=== PATIENT | female | born 1940 | race Caucasian/White ===

== ENCOUNTER → 2018-04-02 12:27 | Outpatient (CLI) | payer MEDICARE, OTHER, SELFPAY ==
--- NOTE | 2018-04-02 | DI.US.S_ITS ---
PROCEDURE: US CAROTID DOPPLER BI INDICATIONS: STENOSIS TECHNIQUE: Color and pulse Doppler interrogation was performed of both carotid systems, with image documentation and velocity measurements. COMPARISON: None. FINDINGS: Stenosis calculations are based on SRU (Society of Radiologists in Ultrasound) criteria. Right side: Brachial blood pressure: 155/77 mm Hg. Common carotid artery peak systolic velocity: 84 cm/sec. Internal carotid artery peak systolic velocity: 55 cm/sec. Internal carotid artery end diastolic velocity: 15 cm/sec. External carotid artery peak systolic velocity: 73 cm/sec. ICA/CCA peak systolic ratio: 0.66. Alvarado scale imaging description: Mild calcified plaque at the proximal ICA. Percent internal carotid artery stenosis: Less than 50%. Vertebral artery: Flow direction is antegrade. Left side: Brachial blood pressure: 150/78 mm Hg. Common carotid artery peak systolic velocity: 73 cm/sec. Internal carotid artery peak systolic velocity: 58 cm/sec. Internal carotid artery end diastolic velocity: 19 cm/sec. External carotid artery peak systolic velocity: 71 cm/sec. ICA/CCA peak systolic ratio: 1.1. Alvarado scale imaging description: Mild calcified plaque at the the bifurcation Percent internal carotid artery stenosis: Less than 50%. Vertebral artery: Flow direction is antegrade. IMPRESSION: Bilateral less than 50% ICA stenosis. Dictated by: Agus Garsia M.D. on 04/02/2018 at 15:58 Approved by: Agus Garsia M.D. on 04/02/2018 at 16:00
== END ==
PROVIDERS: PCP Physician Assistant; Visit Provider Physician Assistant
DX: I65.23 Occlusion and stenosis of bilateral carotid arteries (principal)
CPT/HCPCS: 93880

== ENCOUNTER → 2018-06-12 09:30 | Outpatient (CLI) | payer MEDICARE, OTHER, SELFPAY ==
--- NOTE | 2018-06-12 | DI.MG.S_ITS ---
BILATERAL DIGITAL SCREENING MAMMOGRAM 3D/2D WITH CAD: 06/12/2018 CLINICAL: Routine screening. Family history of breast cancer. Comparison is made to exams dated: 06/18/2013 mammogram, 06/23/2011 mammogram, 12/11/2008 mammogram, and 12/07/2006 mammogram - [facility]. There are scattered fibroglandular elements in both breasts. Current study was also evaluated with a Computer Aided Detection (CAD) system. There are benign calcifications in the right breast. No significant masses, calcifications, or other findings are seen in either breast. There has been no significant interval change. IMPRESSION: There is no mammographic evidence of malignancy. A 1 year screening mammogram is recommended. This exam was interpreted at Station ID: [id number]. NOTE: For mammograms, a report in lay terms will be sent to the patient. Approximately 15% of breast malignancies will not be visualized mammographically. In the management of a palpable breast mass, a negative mammogram must not discourage biopsy of a clinically suspicious lesion. Electronically Signed By: Helio alvarado/key:06/12/2018 18:05:03 letter sent: Normal Exam ACR BI-RADS Category 2: Benign Finding(s) 3342F
== END ==
PROVIDERS: PCP Physician Assistant; Visit Provider Physician Assistant
DX: Z12.31 Encounter for screening mammogram for malignant neoplasm of breast (principal); Z80.3 Family history of malignant neoplasm of breast; M85.852 Other specified disorders of bone density and structure, left thigh; Z78.0 Asymptomatic menopausal state; E07.9 Disorder of thyroid, unspecified
CPT/HCPCS: 77063; 77067; 77080

== ENCOUNTER 2020-05-13 17:50 | Emergency (ER) | payer MEDICARE, OTHER, SELFPAY ==
[2020-05-13] VITALS (14 sets, daily range): BP systolic 148–193; BP diastolic 67–87; PULSE 71–83; RESP 15–23; TEMP 36.8; O2SAT 97–100; BMI 31.1
--- NOTE | 2020-05-13 18:36 | DI.RAD.S_ITS ---
PROCEDURE: XR CHEST 1V INDICATIONS: chest pain TECHNIQUE: One view of the chest was acquired. COMPARISON: [facility], , CHEST 2 VIEW, 03/16/2015, 11:14. FINDINGS: Surgical changes and devices: None. Lungs and pleura: Lungs are clear. No pleural effusions or pneumothorax. Mediastinum: Mediastinal contours appear normal. Heart size is normal. Bones and chest wall: No suspicious bony lesions. Overlying soft tissues appear unremarkable. IMPRESSION: No acute cardiopulmonary disease process. Dictated by: Keyla Pond MD, PhD on 05/13/2020 at 19:02 Approved by: Keyla Pond MD, PhD on 05/13/2020 at 19:03
[2020-05-13 19:01] LABS: Add Manual Diff / Slide Review NO; Basophils Absolute Auto 100 /uL (0-100); Basophils Percent Auto 1.1 % (0-2); Eosinophils Absolute Auto 100 /uL (0-450); Eosinophils Percent Auto 1.2 % (2-4); Hematocrit 34.9 % (36-46); Lymphocytes Absolute Auto 1400 /uL (1100-4500); Lymphocytes Percent Auto 21.7 % (25-40); Mean Corpuscular HGB Conc 34.5 % (30-36); Mean Corpuscular Hemoglobin 30.8 PG (26-34); Mean Corpuscular Volume 89.4 fL (80-100); Monocytes Absolute Auto 500 /uL (0-900); Monocytes Percent Auto 7.6 % (3-14); Neutrophils Absolute Auto 4600 /uL (1500-7000); Neutrophils Percent Auto 68.4 % (50-75); Platelet Count 322 X10^3/uL (150-400); Red Blood Cell Count 3.91 X10^6/uL (4.0-5.2); Red Cell Distribution Width 12.3 % (11.6-14.8); White Blood Cell Count 6.7 X10^3/uL (4.5-11.0)
[2020-05-13 19:08] LABS: Prothrombin Time 11.5 SECONDS (10.1-12.7)
[2020-05-13 19:10] LABS: PTT Partial Thromboplastin Tim 32 SECONDS (26.4-36.2)
[2020-05-13 19:14] LABS: Alanine Aminotransferase 25 IU/L (<35); Albumin 4.4 g/dL (3.5-5.0); Albumin Globulin Ratio 1.6 (1.0-2.8); Alkaline Phosphatase 72 U/L (38-126); Aspartate Aminotransferase 34 IU/L (14-36); Bilirubin Total 0.4 mg/dL (0.2-1.3); Blood Urea Nitrogen 14 mg/dL (7-17); Calcium 9.3 mg/dL (8.4-10.2); Carbon Dioxide 23 mmol/L (22-32); Chloride 91 mmol/L (98-107); Creatine Kinase 45 U/L (30-135); Estimated Glomerular Filt Rate > 60.0 mL/min (>60); Globulin 2.7 g/dL (1.7-4.1); Glucose 104 mg/dL (80-110); HEMOLYSIS < 15 (0-50); Lipase 110 U/L (23-300); Potassium 3.5 mmol/L (3.4-5.1); Sodium 124 mmol/L (137-145); Total Protein 7.1 g/dL (6.3-8.2)
[2020-05-13 19:25] LABS: Troponin I < 0.012 ng/mL (0.01-0.034)
--- NOTE | 2020-05-13 19:33 | ED_ITS ---
HPI - Nausea/Vomiting/Diarrhea General Chief complaint: Nausea/Vomiting/Diarrhea Stated complaint: Not feeling well Time Seen by Provider: 05/13/20 19:32 Source: patient Mode of arrival: EMS Limitations: no limitations History of Present Illness HPI Narrative: Patient is a 79-year-old female with history of hypertension hypothyroid and hyperlipidemia presenting with nausea and some epigastric discomfort today. She says she has not vomited she denies any diarrhea she just has been feeling weak and feels like something is not right. She denies any chest pain palpitations dizziness or lightheadedness. She has been able to take her medications and eat some. She denies any fever or chills. She said yesterday she was at her baseline and feeling okay. MD complaint: nausea Onset (ago): hour(s) Description of Diarrhea: none Location of pain: epigastric Related Data Home Medications Medication Instructions Recorded Confirmed ESCITALOPRAM OXALATE (Lexapro) 10 mg PO Q DAY #0 03/26/08 LEVOTHYROXINE SODIUM (Synthroid) 25 mcg PO Q AM #0 03/26/08 lovastatin 20 mg PO QDAY #0 03/26/08 Previous Rx's Medication Instructions Recorded ondansetron 4 mg PO Q8H PRN #10 tab 05/13/20 Allergies Allergy/AdvReac Type Severity Reaction Status Date / Time No Known Drug Allergies Allergy Verified 05/13/20 18:04 Review of Systems Review of Systems ROS Unobtainable: All systems reviewed & are unremarkable except as noted in HPI and below Constitutional Constitutional: Denies body ache(s), Reports chills, Denies fatigue, Denies fever(s), Denies headache(s) and Denies poor appetite Eyes Eyes: Denies change in vision, Denies eye discharge, Denies irritation and Denies loss of vision ENT Ears, Nose, Mouth, and Throat: Denies headache(s) Cardiovascular Cardiovascular: Denies chest pain, Denies irregular heart rhythm, Denies lightheadedness, Denies palpitations, Denies dyspnea, Denies dyspnea on exertion and Denies orthopnea Respiratory Respiratory: Denies cough, Denies dyspnea, Denies dyspnea on exertion and Denies wheezing Gastrointestinal Gastrointestinal: Reports abdominal pain (Epigastric pain), Denies change in bow el habits, Denies diarrhea, Reports nausea and Denies vomiting Genitourinary Genitourinary: Denies urinary hesitancy and Denies urinary urgency Genitourinary: Denies urinary hesitancy and Denies urinary urgency Musculoskeletal Musculoskeletal: Denies back pain, Denies myalgias and Denies tingling Integumentary/Breasts Skin/Breast: Denies pruritus, Denies erythema, Denies rash and Denies wounds Neurologic Neurologic: Denies headache(s), Denies loss of vision and Denies tingling Endocrine Endocrine: Denies fatigue and Denies palpitations Allergic/Immunologic Allergic/Immunologic: Denies wheezing Patient History Medical History Hyperlipidemia Hypertension Hypothyroid Social History Smoking Status: Unknown if ever smoked Smoking Status: Unknown if ever smoked alcohol intake frequency: holidays/special occasions only Substance Use Type: does not use Exam Initial Vital Signs Initial Vital Signs: Vital Signs Temperature 98.2 F 05/13/20 17:40 Pulse Rate 75 05/13/20 17:40 Respiratory Rate 15 05/13/20 17:40 Blood Pressure 183/79 H 05/13/20 17:40 Pulse Oximetry 97 05/13/20 17:40 GENERAL: Alert well-appearing 79-year-old female and in no acute distress. HEENT: Head atraumatic,EOMI, pupils reactive, face symmetric, moist mucous membranes CARDIOVASCULAR: Regular rate and rhythm without murmurs, rubs or gallops. RESPIRATORY: Breath sounds equal bilaterally, no wheezes rales or rhonchi. ABDOMEN: Soft, mild epigastric tenderness no guarding no rebound mild right upper quadrant lb negative Rivas sign : No CVA tenderness EXTREMITIES: Normal range of motion, no clubbing or edema. Neurovascularly intact NEUROLOGICAL: Alert and oriented x4.Normal gait and speech. SKIN: Warm, dry, no laceration, no petechiae, no rashes or lesions. Course Orders Ordered: ED Orders 05/13/20 17:59 EKG-12 Lead Stat 05/13/20 18:32 Complete Blood Count AUTO DIFF Stat Comprehensive Metabolic Panel Stat Lipase Stat Partial Thromboplastin Time Stat Prothrombin Time INR Stat Troponin & CK Cardiac Panel Stat 05/13/20 18:36 XR chest 1V Stat 05/13/20 19:39 US abdomen limited Stat Discontinued Medications Sodium Chloride (Normal Saline 0.9%) 1,000 mls @ 150 mls/hr IV CONT ALVINA Last Infusion: 05/13/20 21:52 Dose: 150 mls/hr Documented by: Admin: 05/13/20 19:47 Dose: 150 mls/hr Documented by: ZAHRA Ondansetron HCl (Ondansetron 4 Mg/2 Ml Inj) 4 mg IV NOW ONE Stop: 05/13/20 19:40 Last Admin: 05/13/20 19:47 Dose: 4 mg Documented by: ZAHRA Pantoprazole Sodium (Pantoprazole 40 Mg Vial) 40 mg IV NOW ONE Stop: 05/13/20 19:40 Last Admin: 05/13/20 19:48 Dose: 40 mg Documented by: ZAHRA Vital Signs Vital signs: Vital Signs - 8 hr 05/13/20 18:30 05/13/20 19:00 05/13/20 19:01 Pulse Rate 72 75 75 Respiratory Rate 16 23 21 Blood Pressure 193/87 H Pulse Oximetry 99 99 99 05/13/20 19:04 05/13/20 19:13 05/13/20 19:30 Pulse Rate 74 75 73 Respiratory Rate 23 22 18 Blood Pressure 175/77 H 171/79 H 164/77 H Pulse Oximetry 99 99 97 05/13/20 20:00 05/13/20 20:30 05/13/20 21:00 Pulse Rate 73 72 83 Respiratory Rate 16 16 21 Blood Pressure 150/70 H 158/72 H Pulse Oximetry 97 98 98 05/13/20 21:30 05/13/20 21:44 Pulse Rate 78 75 Respiratory Rate 20 19 Blood Pressure 148/67 H Pulse Oximetry 97 98 MDM - Nausea/Vomiting/Diarrhea Lab Data Attestation: I reviewed the patient's lab results. Result diagrams: 05/13/20 18:32 05/13/20 18:32 Labs: Lab Results 05/13/20 05/13/20 05/13/20 Range/Units 18:32 18:32 18:32 WBC 6.7 (4.5-11.0) X10^3/uL RBC 3.91 L (4.0-5.2) X10^6/uL Hgb 12.0 (12.0-16.0) g/dL Hct 34.9 L (36-46) % MCV 89.4 (80-100) fL MCH 30.8 (26-34) PG MCHC 34.5 (30-36) % RDW 12.3 (11.6-14.8) % Plt Count 322 (150-400) X10^3/uL Neut % (Auto) 68.4 (50-75) % Lymph % (Auto) 21.7 L (25-40) % [place] % (Auto) 7.6 (3-14) % Eos % (Auto) 1.2 L (2-4) % Baso % (Auto) 1.1 (0-2) % Neut # (Auto) 4600 (9175-3998) /uL Lymph # (Auto) 1400 (9138-1130) /uL [place] # (Auto) 500 (0-900) /uL Eos # (Auto) 100 (0-450) /uL Baso # (Auto) 100 (0-100) /uL PT 11.5 (10.1-12.7) SECONDS INR 1.0 (0.9-1.3) APTT 32 (26.4-36.2) SECONDS Sodium 124 L (137-145) mmol/L Potassium 3.5 (3.4-5.1) mmol/L Chloride 91 L (98-107) mmol/L Carbon Dioxide 23 (22-32) mmol/L BUN 14 (7-17) mg/dL Creatinine 0.56 (0.52-1.04) mg/dL Estimated GFR > 60.0 (>60) mL/min BUN/Creatinine Ratio 25.0 H (6-22) Glucose 104 (80-110) mg/dL Calcium 9.3 (8.4-10.2) mg/dL Total Bilirubin 0.4 (0.2-1.3) mg/dL AST 34 (14-36) IU/L ALT 25 (<35) IU/L Alkaline Phosphatase 72 (38-126) U/L Total Creatine Kinase 45 (30-135) U/L CK-MB (CK-2) TNP CK-MB (CK-2) Rel Index TNP Troponin I < 0.012 (0.01-0.034) ng/mL Total Protein 7.1 (6.3-8.2) g/dL Albumin 4.4 (3.5-5.0) g/dL Globulin 2.7 (1.7-4.1) g/dL Albumin/Globulin Ratio 1.6 (1.0-2.8) Lipase 110 (23-300) U/L Imaging Data Chest x-ray: Radiologist's Impression: PROCEDURE: XR CHEST 1V INDICATIONS: chest pain TECHNIQUE: One view of the chest was acquired. COMPARISON: [facility], , CHEST 2 VIEW, 03/16/2015, 11:14. FINDINGS: Surgical changes and devices: None. Lungs and pleura: Lungs are clear. No pleural effusions or pneumothorax. Mediastinum: Mediastinal contours appear normal. Heart size is normal. Bones and chest wall: No suspicious bony lesions. Overlying soft tissues appear unremarkable. IMPRESSION: No acute cardiopulmonary disease process. Dictated by: Keyla Pond MD, PhD on 05/13/2020 at 19:02 US - abdomen: Radiologist's Impression: PROCEDURE: US ABDOMEN LIMITED INDICATIONS: RIGHT UPPER QUADRANT PAIN TECHNIQUE: Real-time focused scanning was performed of the abdomen, with image documentation. COMPARISON: None. FINDINGS: Liver is normal in size. Liver is diffusely increased echotexture. No focal hepatic mass lesions. Gallbladder is sonographically normal. No gallstones. No gallbladder wall thickening. No pericholecystic fluid. No sonographic Rivas sign. Biliary tree is nondilated. Common bile duct measures 7.5 millimeters. Pancreas is sonographically normal. IMPRESSION: 1. No sonographic evidence of cholelithiasis or cholecystitis. If there is continued clinical concern for cholecystitis, consider nuclear medicine HIDA scan for further evaluation. 2. Echogenic liver. Finding typically represents fatty infiltration; however, finding is nonspecific and correlation with clinical and laboratory findings is recommended to exclude other etiologies including hepatic cirrhosis. ECG Data Attestation: I personally reviewed and interpreted this ECG as follows: Interpretation: Normal sinus rhythm rate 71 p.r. interval 186 QRS 84 QTC 480 his [address]VC [address] no ST changes MDM Narrative Medical decision making narrative: Patient does have some mild epigastric pain and minimal right upper quadrant pain, liver enzymes and bilirubin are within normal limits. Ultrasound did not show any abnormality that would be causing her to be nauseated. Her sodium is found to be 124 this is lower than what it normally is, baseline is seem to be drinking excessive water and she is continuing to eat. A recommend she follow up as outpatient his mind have it be retested. At this time unclear what has been causing her nausea but she is overall feeling better after Zofran. Discharge Plan Departure Patient Disposition: Home Clinical Impression: Chronic hyponatremia Instructions: Hyponatremia-Adult Activity Restrictions/Additional Instructions: *You have been diagnosed with mild hyponatremia is which is low-sodium *What to do: Your sodium today is 124, this may be from drinking excessive water. Please limit your water intake to 4 glasses a day, I also recommend drinking Gatorade or Gatorade like substance instead please have your sodium recheck with her primary care provider *Continue to take medications as directed Zofran 4 mg every 8 hours if needed for nausea or vomiting *Follow up with your primary care provider in 2-3 days *Return to ER if you should have increasing weakness, nausea or vomiting, or abdominal or any new, worsening or concerning symptoms Prescriptions: New ondansetron 4 mg tablet,disintegrating 4 mg PO Q8H PRN (Reason: nausea and vomiting) Qty: 10 RF: 0 No Action ESCITALOPRAM OXALATE (Lexapro) 10 mg PO Q DAY Qty: 0 RF: 0 LEVOTHYROXINE SODIUM (Synthroid) 25 mcg PO Q AM Qty: 0 RF: 0 lovastatin 20 MG tablet 20 mg PO QDAY Qty: 0 RF: 0 Referrals: Gisele Thakkar PA-C [Primary Care Provider] -
--- NOTE | 2020-05-13 19:39 | DI.US.S_ITS ---
PROCEDURE: US ABDOMEN LIMITED INDICATIONS: RIGHT UPPER QUADRANT PAIN TECHNIQUE: Real-time focused scanning was performed of the abdomen, with image documentation. COMPARISON: None. FINDINGS: Liver is normal in size. Liver is diffusely increased echotexture. No focal hepatic mass lesions. Gallbladder is sonographically normal. No gallstones. No gallbladder wall thickening. No pericholecystic fluid. No sonographic Rivas sign. Biliary tree is nondilated. Common bile duct measures 7.5 millimeters. Pancreas is sonographically normal. IMPRESSION: 1. No sonographic evidence of cholelithiasis or cholecystitis. If there is continued clinical concern for cholecystitis, consider nuclear medicine HIDA scan for further evaluation. 2. Echogenic liver. Finding typically represents fatty infiltration; however, finding is nonspecific and correlation with clinical and laboratory findings is recommended to exclude other etiologies including hepatic cirrhosis. Dictated by: Keyla Pond MD, PhD on 05/13/2020 at 22:08 Approved by: Keyla Pond MD, PhD on 05/13/2020 at 22:10
[2020-05-13] MEDS: ONDANSETRON 4 MG/2 ML INJ IV (19:47)
[2020-05-13] MEDS: SODIUM CHLORIDE 0.9% 1,000 ML 150 ML IV (19:47)
[2020-05-13] MEDS: PANTOPRAZOLE 40 MG VIAL IV (19:48)
== END 2020-05-13 21:50 | disposition home or self-care (01) ==
PROVIDERS: Emergency Provider Emergency Medicine; PCP Physician Assistant
DX: E87.1 Hypo-osmolality and hyponatremia (principal)
CPT/HCPCS: 36415; 71045; 76705; 80053; 82550; 83690; 84484; 85025; 85610; 85730; 93005; 96361; 96374; 96375; 99284; C9113; J2405

== ENCOUNTER → 2020-05-21 18:33 | Outpatient (ROUT) | payer MEDICARE, OTHER, SELFPAY ==
[2020-05-21 18:58] LABS: Add Manual Diff / Slide Review NO; Basophils Absolute Auto 0 /uL (0-100); Basophils Percent Auto 0.2 % (0-2); Eosinophils Absolute Auto 200 /uL (0-450); Eosinophils Percent Auto 3.1 % (2-4); Hematocrit 35.4 % (36-46); Lymphocytes Absolute Auto 1900 /uL (1100-4500); Lymphocytes Percent Auto 32.1 % (25-40); Mean Corpuscular Hemoglobin 30.6 PG (26-34); Mean Corpuscular Volume 90.1 fL (80-100); Monocytes Absolute Auto 600 /uL (0-900); Neutrophils Absolute Auto 3300 /uL (1500-7000); Neutrophils Percent Auto 54.6 % (50-75); Platelet Count 366 X10^3/uL (150-400); Red Blood Cell Count 3.92 X10^6/uL (4.0-5.2); Red Cell Distribution Width 12.4 % (11.6-14.8)
[2020-05-21 19:06] LABS: Alanine Aminotransferase 26 IU/L (<35); Albumin 4.3 g/dL (3.5-5.0); Albumin Globulin Ratio 1.7 (1.0-2.8); Alkaline Phosphatase 61 U/L (38-126); Aspartate Aminotransferase 30 IU/L (14-36); Bilirubin Total 0.3 mg/dL (0.2-1.3); Blood Urea Nitrogen 12 mg/dL (7-17); Carbon Dioxide 29 mmol/L (22-32); Chloride 91 mmol/L (98-107); Estimated Glomerular Filt Rate > 60.0 mL/min (>60); Globulin 2.6 g/dL (1.7-4.1); Glucose 109 mg/dL (80-110); HEMOLYSIS < 15 (0-50); Potassium 4.4 mmol/L (3.4-5.1); Sodium 128 mmol/L (137-145); Total Protein 6.9 g/dL (6.3-8.2)
[2020-05-21 19:36] LABS: TSH w/ Reflex to FT4 0.99 uIU/mL (0.47-4.68)
== END ==
PROVIDERS: PCP Physician Assistant; Visit Provider Physician Assistant
DX: I10 Essential (primary) hypertension (principal); E03.9 Hypothyroidism, unspecified; E78.5 Hyperlipidemia, unspecified
CPT/HCPCS: 80053; 84443; 85025

== ENCOUNTER → 2020-07-02 14:37 | Outpatient (CLI) | payer MEDICARE, OTHER, SELFPAY ==
[2020-07-02 16:13] LABS: Add Manual Diff / Slide Review NO; Basophils Absolute Auto 100 /uL (0-100); Basophils Percent Auto 1.1 % (0-2); Eosinophils Absolute Auto 200 /uL (0-450); Eosinophils Percent Auto 3.1 % (2-4); Hematocrit 34.8 % (36-46); Hemoglobin 11.9 g/dL (12.0-16.0); Lymphocytes Absolute Auto 2500 /uL (1100-4500); Lymphocytes Percent Auto 35.5 % (25-40); Mean Corpuscular HGB Conc 34.1 % (30-36); Mean Corpuscular Hemoglobin 30.6 PG (26-34); Mean Corpuscular Volume 89.7 fL (80-100); Monocytes Absolute Auto 700 /uL (0-900); Monocytes Percent Auto 9.7 % (3-14); Neutrophils Absolute Auto 3600 /uL (1500-7000); Neutrophils Percent Auto 50.6 % (50-75); Platelet Count 338 X10^3/uL (150-400); Red Blood Cell Count 3.88 X10^6/uL (4.0-5.2); Red Cell Distribution Width 12.3 % (11.6-14.8); White Blood Cell Count 7.1 X10^3/uL (4.5-11.0)
[2020-07-02 16:31] LABS: BUN Creatinine Ratio 27.4 (6-22); Blood Urea Nitrogen 17 mg/dL (7-17); Calcium 9.6 mg/dL (8.4-10.2); Carbon Dioxide 28 mmol/L (22-32); Chloride 94 mmol/L (98-107); Cholesterol 225 mg/dL (140-199); Estimated Glomerular Filt Rate > 60.0 mL/min (>60); Glucose 87 mg/dL (80-110); HDL Cholesterol 88 mg/dL (40-60); HEMOLYSIS < 15 (0-50); LDL Cholesterol Calculated 113 mg/dL (<100); Potassium 4.3 mmol/L (3.4-5.1); Sodium 129 mmol/L (137-145); Triglycerides 119 mg/dL (35-150)
[2020-07-02 17:25] LABS: TSH w/ Reflex to FT4 < 0.02 uIU/mL (0.47-4.68)
[2020-07-02 18:30] LABS: Free T4, Direct Thyroxine 1.33 ng/dL (0.78-2.19)
== END ==
PROVIDERS: PCP Physician Assistant; Referring Provider Physician Assistant; Visit Provider Physician Assistant
DX: I10 Essential (primary) hypertension (principal); E03.9 Hypothyroidism, unspecified; E78.5 Hyperlipidemia, unspecified
CPT/HCPCS: 36415; 80048; 80061; 84439; 84443; 85025

== ENCOUNTER → 2020-08-18 14:43 | Outpatient (CLI) | payer MEDICARE, OTHER, SELFPAY ==
[2020-08-18 15:40] LABS: Add Manual Diff / Slide Review NO; Basophils Absolute Auto 100 /uL (0-100); Basophils Percent Auto 1.2 % (0-2); Eosinophils Absolute Auto 200 /uL (0-450); Eosinophils Percent Auto 2.8 % (2-4); Hematocrit 35.5 % (36-46); Lymphocytes Absolute Auto 1800 /uL (1100-4500); Lymphocytes Percent Auto 23.4 % (25-40); Mean Corpuscular HGB Conc 33.7 % (30-36); Mean Corpuscular Hemoglobin 30.5 PG (26-34); Mean Corpuscular Volume 90.7 fL (80-100); Monocytes Absolute Auto 600 /uL (0-900); Neutrophils Absolute Auto 5100 /uL (1500-7000); Neutrophils Percent Auto 64.6 % (50-75); Platelet Count 301 X10^3/uL (150-400); Red Blood Cell Count 3.91 X10^6/uL (4.0-5.2); Red Cell Distribution Width 12.8 % (11.6-14.8); White Blood Cell Count 7.9 X10^3/uL (4.5-11.0)
[2020-08-18 15:52] LABS: Alanine Aminotransferase 25 IU/L (<35); Albumin 4.3 g/dL (3.5-5.0); Albumin Globulin Ratio 1.5 (1.0-2.8); Alkaline Phosphatase 66 U/L (38-126); Aspartate Aminotransferase 35 IU/L (14-36); BUN Creatinine Ratio 23.9 (6-22); Bilirubin Total 0.4 mg/dL (0.2-1.3); Blood Urea Nitrogen 17 mg/dL (7-17); Calcium 9.2 mg/dL (8.4-10.2); Carbon Dioxide 26 mmol/L (22-32); Chloride 99 mmol/L (98-107); Cholesterol 210 mg/dL (140-199); Estimated Glomerular Filt Rate > 60.0 mL/min (>60); Globulin 2.8 g/dL (1.7-4.1); Glucose 95 mg/dL (80-110); HDL Cholesterol 82 mg/dL (40-60); HEMOLYSIS < 15 (0-50); LDL Cholesterol Calculated 98 mg/dL (<100); Potassium 4.2 mmol/L (3.4-5.1); Sodium 131 mmol/L (137-145); Total Protein 7.1 g/dL (6.3-8.2); Triglycerides 149 mg/dL (35-150)
[2020-08-18 17:05] LABS: TSH w/ Reflex to FT4 0.02 uIU/mL (0.47-4.68)
[2020-08-18 17:53] LABS: Free T4, Direct Thyroxine 1.33 ng/dL (0.78-2.19)
== END ==
PROVIDERS: PCP Physician Assistant; Referring Provider Physician Assistant; Visit Provider Physician Assistant
DX: I10 Essential (primary) hypertension (principal); E03.9 Hypothyroidism, unspecified; E78.5 Hyperlipidemia, unspecified
CPT/HCPCS: 36415; 80053; 80061; 84439; 84443; 85025

== ENCOUNTER 2021-06-27 18:33 | Emergency (ER) | payer MEDICARE, OTHER, SELFPAY ==
[2021-06-27 18:42] VITALS: BP 169/78; PULSE 78; RESP 16; TEMP 36.7; O2SAT 97; BMI 30.9
--- NOTE | 2021-06-27 18:50 | DI.RAD.S_ITS ---
PROCEDURE: XR CHEST 1V INDICATIONS: cough, COVID+ TECHNIQUE: One view of the chest was acquired. COMPARISON: [facility], CR, XR CHEST 1V, 05/13/2020, 18:40. FINDINGS: Surgical changes and devices: None. Lungs and pleura: Lungs are clear. No pleural effusions or pneumothorax. Mediastinum: Mediastinal contours appear normal. Heart size is normal. Bones and chest wall: No suspicious bony lesions. Overlying soft tissues appear unremarkable. IMPRESSION: No acute cardiopulmonary pathology. Dictated by: Sebastian Fry M.D. on 06/27/2021 at 19:13 Approved by: Sebastian Fry M.D. on 06/27/2021 at 19:14
[2021-06-27 18:58] VITALS: PULSE 81; O2SAT 98
[2021-06-27 19:00] VITALS: PULSE 80; O2SAT 98
[2021-06-27 19:01] VITALS: BP 184/75; PULSE 80; O2SAT 97
[2021-06-27 19:30] VITALS: PULSE 78; O2SAT 98
[2021-06-27 19:31] VITALS: BP 183/73; PULSE 74; O2SAT 97
[2021-06-27] MEDS: PANTOPRAZOLE 40 MG VIAL IV (19:44)
[2021-06-27] MEDS: ONDANSETRON 4 MG/2 ML INJ IV (19:44)
[2021-06-27] MEDS: MAG HYDROX/ALUMINUM/SIMETH SUS 20 ML, LIDOCAINE VISCOUS 2% 15 ML PO (19:45)
--- NOTE | 2021-06-28 01:04 | ED_ITS ---
HPI - URI/Sore Throat General Chief Complaint: Upper Respiratory Symptoms Stated Complaint: COVID + Time Seen by Provider: 06/27/21 18:51 Source: EMS Mode of arrival: EMS History of Present Illness HPI Narrative: 80F nonsmoker with history of hypothyroid, hyperlipidemia presents with a chief complaint of some mild nausea and an episode of dark stool. She has known COVID and has been on Paxlovid the past few days. She denies any dizziness, weakness or lightheadedness. She denies any chest pain or shortness of breath but does have minimal cough. She is nauseated as mention but denies any vomiting. She took some Pepto after she had a single episode of diarrhea and then had a dark bowel movement. She is resting comfortably and has very little complaint Related Data Home Medications Medication Instructions Recorded Confirmed ESCITALOPRAM OXALATE (Lexapro) 10 mg PO Q DAY #0 03/26/08 LEVOTHYROXINE SODIUM (Synthroid) 25 mcg PO Q AM #0 03/26/08 lovastatin 20 mg tablet 20 mg PO QDAY #0 03/26/08 Previous Rx's Medication Instructions Recorded ondansetron 4 mg disintegrating 4 mg PO Q8H PRN #10 tab 05/13/20 tablet ondansetron 4 mg disintegrating 4 mg PO TID-QID PRN #10 tab 06/27/21 tablet pantoprazole 40 mg tablet,delayed 40 mg PO DAILY #30 tab 06/27/21 release (Protonix) Allergies Allergy/AdvReac Type Severity Reaction Status Date / Time No Known Drug Allergies Allergy Verified 06/27/21 18:45 Review of Systems Review of Systems Narrative: GENERAL: See HPI HEENT: See HPI RESPIRATORY: See HPI. CARDIOVASCULAR: Denies chest pain, palpitations, orthopnea, edema, GASTROINTESTINAL: See HPI : Denies dysuria, frequency, incontinence, hematuria, urinary retention. MUSCULOSKELETAL: denies weakness, joint pain, or bony pain SKIN: Denies rash, skin lesions, or other NEUROLOGIC: Denies weakness, headache, numbness, change in speech, confusion, seizures, incoordination. PSYCHIATRIC: No concerning psychosocial issues. 12 point review of systems is negative except for those stated above Patient History Medical History Hyperlipidemia Hypertension Hypothyroid Social History (Reviewed 06/28/21 @ 01:19 by KARINE Alvarez Smoking Status: Unknown if ever smoked Smoking Status: Unknown if ever smoked alcohol intake frequency: holidays/special occasions only Substance Use Type: does not use Exam Narrative Exam Narrative: GENERAL: [80] year old patient appears stated age. Well-developed patient, in no obvious distress, resting comfortably, talking in full sentences without need for supplemental oxygen HEAD: Atraumatic. Normocephalic. EYES: Pupils equal round and reactive. Extraocular motions intact. No scleral icterus. No injection or drainage. ENT: Nose without bleeding, purulent drainage. Throat without erythema, tonsillar hypertrophy or exudate. Airway patent. NECK: Trachea midline. Non tender CARDIOVASCULAR: Regular rate and rhythm without murmurs, gallops, or rubs. RESPIRATORY: Clear to auscultation. Breath sounds equal bilaterally. No wheezes, rales, or rhonchi. GASTROINTESTINAL: Abdomen soft, non-tender, nondistended. RECTAL: refused EXTREMITIES: No edema or joint tenderness. BACK: Nontender without deformity or crepitance. No flank tenderness. NEURO: AOx3. SKIN: No rash or erythema of visible areas Initial Vital Signs Initial Vital Signs: Vital Signs Temperature 98.0 F 06/27/21 18:42 Pulse Rate 78 06/27/21 18:42 Respiratory Rate 16 06/27/21 18:42 Blood Pressure 169/78 H 06/27/21 18:42 Pulse Oximetry 97 06/27/21 18:42 Course Orders Ordered: ED Orders 06/27/21 18:50 Chest [XR chest 1V] Stat Discontinued Medications Al Hydrox/Mg Hydrox/Simethicone 20 ml/ Lidocaine HCl 15 ml 0 ml PO NOW ONE Stop: 06/27/21 19:33 Last Admin: 06/27/21 19:45 Dose: 35 ml Documented by: ATAYLOR Ondansetron HCl (Ondansetron 4 Mg/2 Ml Inj) 4 mg IV NOW ONE Stop: 06/27/21 19:33 Last Admin: 06/27/21 19:44 Dose: 4 mg Documented by: ATAYLOR Pantoprazole Sodium (Pantoprazole 40 Mg Vial) 40 mg IV NOW ONE Stop: 06/27/21 19:33 Last Admin: 06/27/21 19:44 Dose: 40 mg Documented by: FAVIAN Vital Signs Vital signs: Vital Signs - 8 hr 05/22/22 18:42 06/27/21 18:58 06/27/21 19:00 Temperature 98.0 F Pulse Rate 78 81 80 Respiratory Rate 16 Blood Pressure 169/78 H Pulse Oximetry 97 98 98 06/27/21 19:01 06/27/21 19:30 06/27/21 19:31 Temperature Pulse Rate 80 78 74 Respiratory Rate Blood Pressure 184/75 H 183/73 H Pulse Oximetry 97 98 97 MDM - URI/Sore Throat Imaging Data Chest x-ray: Radiologist's Impression: [address] [address] XRay Report Signed Patient: Theresa Hendrickson MR#: [id number] : 1940 Acct:[id number] Age/Sex: 80 / F Date of Service: 06/27/21 Loc: ED Accession Number: [id number] ?? Procedure: XR chest 1V Ordering Provider: Alec Hines D.O. PROCEDURE:? XR CHEST 1V ? INDICATIONS:? cough, COVID+ ? TECHNIQUE:? One view of the chest was acquired.? ? COMPARISON:? [facility], CR, XR CHEST 1V, 05/13/2020, 18:40. ? FINDINGS:? ? Surgical changes and devices:? None.? ? Lungs and pleura:? Lungs are clear.? No pleural effusions or pneumothorax.? ? Mediastinum:? Mediastinal contours appear normal.? Heart size is normal.? ? Bones and chest wall:? No suspicious bony lesions.? Overlying soft tissues appear unremarkable.? ? IMPRESSION:? No acute cardiopulmonary pathology. ? ? Dictated by: Sebastian Fry M.D. on 06/27/2021 at 19:13 ? ? Approved by: Sebastian Fry M.D. on 06/27/2021 at 19:14 ? [facility] Narrative Medical decision making narrative: 80-year-old female with known COVID has a very reassuring history and physical exam. She has no respiratory distress, need for supplemental oxygen or abnormal findings on x-ray. Her biggest concern is some nausea but she denies any pain and tolerates orals without difficulty. She feels much better after antinausea medications. She did have a single dark stool after taking Pepto and though she refused rectal exam for Hemoccult it seems unlikely that this would be related to blood. She is given return precautions and questions have been answered to her apparent satisfaction Discharge Plan Departure Patient Disposition: Home Clinical Impression: COVID, Nausea Instructions: DI for COVID-19 (Suspected or Confirmed ) Activity Restrictions/Additional Instructions: *You have been diagnosed with [ COVID-19] *What to do: * per recommendations from the CDC and the [facility] Department of Health * stay home except to get medical care. Restrict activities outside your home, except for getting medical care. Do not go to work, school, or public areas. Avoid using public transportation, ride sharing, or taxis. * separate yourself from other people in your home. * call ahead before visiting your doctor * Wear a facemask * Cover your coughs and sneezes * Clean your hands often * Avoid sharing household items * Clean all high-touch services every day * Monitor your symptoms and seek prompt medical attention if your illness is worsening, particularly with difficulty in breathing. You may discontinue your isolation when: 1. You have been fever-free for at least 24 hours without the use of fever reducing medication, AND 2. Your symptoms are getting better, AND 3. At least 5 days have passed since symptoms first appeared 4. If you have fever, continue to stay home until fever resolves Individuals with laboratory confirmed COVID-19 who have not had any symptoms may discontinue home isolation when at least 5 days have passed since the date of their first COVID-19 diagnostic test and have had no subsequent illness You should notifiy any friends and family that have been in close contact *If up to date on COVID Vaccines, then they do not need to quarantine unless symptoms develop. Get tested on day 5 (or sooner if symptoms develop). Take precautions and watch for symptoms until day 10 *If NOT up to date on COVID Vaccines, then CDC recommends quarantine for at least 5 full days. Wear a well fitted mask at home if you must be around others. If they develop symptoms they should get tested. If they remain asymptomatic they should get tested on day 5. They should take precautions and monitor for symptoms until day 10. Prescriptions: New pantoprazole [Protonix] 40 mg tablet,delayed release (DR/EC) 40 mg PO DAILY Qty: 30 0RF ondansetron 4 mg tablet,disintegrating 4 mg PO TID-QID PRN (Reason: nausea and vomiting) Qty: 10 0RF No Action ESCITALOPRAM OXALATE (Lexapro) 10 mg PO Q DAY Qty: 0 0RF LEVOTHYROXINE SODIUM (Synthroid) 25 mcg PO Q AM Qty: 0 0RF lovastatin 20 MG tablet 20 mg PO QDAY Qty: 0 0RF ondansetron 4 mg tablet,disintegrating 4 mg PO Q8H PRN (Reason: nausea and vomiting) Qty: 10 0RF Referrals: Gisele Thakkar PA-C [Primary Care Provider] -
== END 2021-06-27 20:07 | disposition home or self-care (01) ==
PROVIDERS: Emergency Provider Emergency Medicine; PCP Physician Assistant
DX: U07.1 COVID-19 (principal); R11.0 Nausea
CPT/HCPCS: 71045; 96374; 96375; 99284; C9113; J2405